=== PATIENT | female | born 1945 | race Caucasian/White ===

== ENCOUNTER 2022-09-20 09:46 | Outpatient (CLI) | payer MEDICARE, SELFPAY | END 2022-09-20 09:47 | disposition home or self-care (01) | LOC: NFLDUCREF 09-21 11:09 | PROVIDERS: PCP Family Medicine; Visit Provider Physician Assistant | DX: R30.0 Dysuria (principal); N39.0 Urinary tract infection, site not specified | CPT/HCPCS: 87086; 87186 ==

== ENCOUNTER 2023-08-12 17:40 | Outpatient (CLI) | payer MEDICARE, SELFPAY ==
--- NOTE | 2023-08-12 18:15 | CRLHL7_ITS ---
For Patients: As a result of the Century Cures Act, medical imaging exams and procedure reports are released immediately into your electronic medical record. You may view this report before your referring provider. If you have questions, please contact your health care provider. HISTORY: Right knee pain. TECHNIQUE: Routine knee protocol. FINDINGS: Medial compartment: Medial meniscus: The medial meniscus is intact without evidence for tearing. 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 Lateral compartment: Lateral meniscus: Horizontal tearing is noted of the body of the meniscus as noted on images 18-20 of series 6 with sparing of the anterior and posterior horns. 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 Patellofemoral compartment: Severe full-thickness grade 4 chondromalacia is noted of the lateral facet and lateral trochlear sulcus with grade 3 changes medially. Small osteophytes are noted. Ligaments: The anterior cruciate, posterior cruciate, medial collateral and lateral collateral ligaments are intact. Extensor mechanism: The quadriceps and patellar tendons are intact and unremarkable. Bones and soft tissues: No findings for transcortical or osteochondral fracture. There is a mild knee joint effusion present. No loose body is noted. Patchy edema is seen in the soft tissues about the knee joint. There is a 7 cm posteromedial Govea`s cyst present. IMPRESSION: Tearing of the body of the lateral meniscus. There is severe grade 3/4 chondromalacia throughout the knee joint. Dictated by Sammy Coy MD @ 08/15/2023 7:04:23 AM (Electronically Signed)
== END 2023-08-12 17:41 | disposition home or self-care (01) ==
PROVIDERS: PCP Family Medicine; Visit Provider Internal Medicine
DX: M25.561 Pain in right knee (principal); S83.281A Other tear of lateral meniscus, current injury, right knee, initial encounter; M94.261 Chondromalacia, right knee; S89.90XA Unspecified injury of unspecified lower leg, initial encounter
CPT/HCPCS: 73721

== ENCOUNTER 2023-08-31 07:06 | Day surgery (SDC) | payer MEDICARE, SELFPAY ==
[2023-08-31] VITALS (14 sets, daily range): BP systolic 82–123; BP diastolic 50–89; PULSE 63–137; RESP 16–24; TEMP 36.3–37.7; O2SAT 92–100; BMI 22.3
[2023-08-31] MEDS: LACTATED RINGERS 1000 ML 1,000 ML 100 ML IV (07:45)
[2023-08-31] MEDS: SODIUM CHLORIDE 0.9 % (FLUSH) 10 ML SYRINGE IVF (07:45)
--- NOTE | 2023-08-31 07:54 | SUR.PREOP ---
Anesthesia ordered EKG for irregular heart rate by monitor. Continued to monitor, Heart rate high 80's to 100. Anesthesia aware. Pushing IV fluids pre-op.
[2023-08-31] MEDS: CEFAZOLIN 2 GM INJ IVP (08:39)
[2023-08-31] MEDS: BUPIVACAINE 0.25% 30 ML INJECTION (09:15)
--- NOTE | 2023-08-31 09:17 | PM.ORPRC ---
Procedure Note Date of procedure: 08/31/23 Procedure: PREOPERATIVE DIAGNOSIS: Right knee lateral meniscus tear POSTOPERATIVE DIAGNOSIS: Right knee lateral meniscus tear NAME OF OPERATION: Right knee arthroscopic partial lateral meniscectomy SURGEON: Ethan Kilpatrick MD STOPBOARD ASSEMBLER: JESSEE Conner ANESTHESIA: Spinal ESTIMATED BLOOD LOSS: 0 mL COMPLICATIONS: None SPECIMENS: None DRAINS: None PREOPERATIVE ANTIBIOTICS: Ancef 2 gram INDICATIONS: The patient is a 78-year-old with a history of right knee posterior pain. MRI scan is consistent with a lateral meniscus tear. Despite appropriate nonoperative management, including activity modification, antiinflammatories, [id number]-[id number] pain medication, bracing, physical therapy, and injections they continue to have pain and disability. Operative intervention was offered. The risks, benefits and expected outcomes were discussed in detail. These included but were not limited to: Infection, bleeding, injury to blood vessel or nerve, venous thromboembolism. All questions were answered to their satisfaction. PROCEDURE: Spinal anesthesia was administered. The patient was placed supine on the operating room table. The right lower extremity was prepped and draped in the usual sterile fashion. The limb was exsanguinated with the Ronald bandage. The pneumatic tourniquet was inflated to 300 mmHg. A standard anterolateral portal was established. The arthroscope was introduced. The working portal was established anteromedially. Diagnostic arthroscopy was performed with findings as follows: The suprapatellar pouch is normal. Articular surface on the patella shows diffuse grade 1/2 change. Articular surface on the trochlea shows diffuse grade 2/3 change. The medial gutter is normal. The medial compartment shows a focal area of grade 3 change on the central, weight-bearing portion of the medial femoral condyle, normal articular cartilage on the medial tibial plateau. The medial meniscus is normal. The notch shows the ACL to be intact. The lateral compartment shows a focal area of grade 3 change on the lateral femoral condyle, grade 2/3 change on the lateral tibial plateau. The lateral meniscus has a degenerative tear of the midbody at the junction to the anterior horn primarily consisting of leading edge fraying and mid substance horizontal cleavage tearing. The lateral gutter is normal. The midbody of the lateral meniscus was debrided with the shaver through both portals, taken to a stable base. Unstable chondral flaps on the medial and lateral femoral condyle were debrided with the shaver through both portals as well. Arthroscopic instruments were removed, the portal sites were Steri-Stripped closed, the knee was infiltrated with 30 mL of 0.25% Marcaine without epinephrine. A dry dressing was applied, the tourniquet was released. Sponge and needle counts were correct x 2. The patient tolerated the procedure well. There were no apparent complications. They were carefully transferred to the hospital bed and taken to the postanesthesia care unit in satisfactory condition. PLAN: The patient will be discharged to home. They may weightbear as tolerates. Range of motion will be unrestricted. They will follow up in the office next week for a wound check.
--- NOTE | 2023-08-31 09:25 | W.ANESCHARGE ---
Anesthesia Charges Start Date/Time Anesthesia Start Date: 08/31/23 Anesthesia Start Time: 08:28 Stop Date/Time Anesthesia Stop Date: 08/31/23 Anesthesia Stop Time: 09:25
--- NOTE | 2023-08-31 09:42 | W.ANESCHARGE ---
Anesthesia Charges Start Date/Time Anesthesia Start Date: 08/31/23 Anesthesia Start Time: 08:28 Stop Date/Time Anesthesia Stop Date: 08/31/23 Anesthesia Stop Time: 09:25 Summary Extremes of Age - Over 70 or under 1: MDA
--- NOTE | 2023-08-31 09:59 | SUR.PHASEI ---
patient met discharge criteria per anesthesia
== END 2023-08-31 11:25 | disposition home or self-care (01) ==
PROVIDERS: PCP Family Medicine; Visit Provider Orthopaedic Surgery
PROC: (CPT 29870; principal; 2023-08-31 08:30)
DX: M23.241 Derangement of anterior horn of lateral meniscus due to old tear or injury, right knee (principal)
CPT/HCPCS: 29881; 01400; 99100; J0665; J0690; J1100; J2250; J2405; J2704; J3010; J7120

== ENCOUNTER 2024-02-17 13:19 | Outpatient (CLI) | payer MEDICARE, SELFPAY ==
--- NOTE | 2024-02-17 14:00 | XR_ITS ---
Patient: NEFTALI SOLANO Facility:?[facility] Patient ID:?[id number] Site Patient ID:?[id number]. Site :?[id number] Study:?DEXA-Bone Density -02/17/2024 2:07:08 PM Ordering Physician:IRENE Final Report: DXA BONE MINERAL DENSITY STUDY Reason for exam: Osteoporosis. Current height (inches): 65.0 Weight (lbs.): 135.0 Menopause age: 51 Ethnicity: White 1. Have you had a previous hip or vertebral fracture? No. 2. Have you had any fractures during your adult life which did not result from significant trauma (e.g., auto accident)? Yes. 3. Did either of your parents have a hip fracture? No. 4. Do you smoke? No. 5. Have you ever taken Glucocorticoids? No. 6. Do you have rheumatoid arthritis? No. 7. Do you have secondary osteoporosis? No. 8. Do you drink 3 or more alcoholic drinks per day? Yes. 9. Are you being treated for osteoporosis? No. 10. Have you ever taken any of the following medications: Actonel, Evista, Fosamax, Miacalcin, Reclast, Boniva, Forteo, HRT (i.e., estrogen/hormone therapy), Protelos, Prolia, Vitamin D, Calcium, other ? please specify. ANSWER: Yes; Fosamax, Reclast, vitamin D, HRT, calcium. 11. Do you have any of the following medical conditions: Anorexia or bulimia, asthma or emphysema, end stage renal disease, hyperparathyroidism, any seizure disorders, cancer, inflammatory bowel diseases, hysterectomy, other ? please specify. ANSWER: Yes; cancer. 12. What was your maximum height (inches)? 67. 13. Do you perform weightbearing exercise regularly? No. 14. Do you regularly consume dairy products? No. 15. Do you drink caffeinated beverages? Yes. 16. At what age did your period start? 12. 17. Are you premenopausal? No. 18. How many full-term pregnancies have you had? 2. 19. Have you ever missed your period for more than 6 months in a row (not including or menopause)? No. TECHNIQUE: Bone mineral density study was performed using the [facility]. FINDINGS: The results of the study expressed as bone mineral density (BMD) are as follows: Lumbar Spine L1 to L2: BMD: 0.886 g/cm2. T-score: -0.8. Z-score: 1.6. Neck Left: BMD: 0.422 g/cm2. T-score: -3.8. Z-score: -1.6. Right: BMD: 0.469 g/cm2. T-score: -3.4. Z-score: -1.1. Total Left: BMD: 0.566 g/cm2. T-score: -3.1. Z-score: -1.0. Right: BMD: 0.617 g/cm2. T-score: -2.7. Z-score: -0.6. Radius Left 33%: BMD: 0.446 g/cm2. T-score: -4.1. Z-score: -1.0. IMPRESSION: Osteoporosis. COMPARISON: Compared with scan of 03/08/2017, the bone mineral density has increased by 15.5% at the spine and increased by 2.2% at the hip. *Comparison exams done prior to 04/2020 were performed on different unit, [employer]. BILL PALUMBO M.D. Diagnostic Radiologist [email or web address] ALEX/wing D& Transcribed: 12:[address]/Dictated by: Bill Palumbo MD @ 02/18/2024 10:42:00 AM Signed by:?Bill Palumbo MD @02/18/2024 12:12:12 PM (Electronic Signature)
== END 2024-02-17 13:20 | disposition home or self-care (01) ==
PROVIDERS: PCP Family Medicine; Visit Provider Family Medicine
DX: M81.0 Age-related osteoporosis without current pathological fracture (principal)
CPT/HCPCS: 77080

== ENCOUNTER 2024-09-04 18:29 | Inpatient (IN) | payer MEDICARE, SELFPAY ==
[2024-09-04] VITALS (21 sets, daily range): BP systolic 103–156; BP diastolic 74–112; PULSE 69–133; RESP 16–18; TEMP 36.6–36.8; O2SAT 86–100; BMI 21.8; BMI 22.2
[2024-09-04 19:25] LABS: Lactate* 0.9 mmol/L (0.5-1.9)
[2024-09-04 19:27] LABS: Basophils Absolute Auto 0.03 K/uL (0.00-0.30); Basophils Percent Auto 0.5 % (0.0-3.0); Eosinophils Percent Auto 1.6 % (0.0-7.0); Hematocrit 41.6 % (33.0-51.0); Hemoglobin* 13.4 gm/dL (12.0-16.0); Immature Granulocytes Abs Auto 0.01 K/uL (0.00-0.30); Immature Granulocytes Pct Auto 0.2 %; Lymphocytes Absolute Auto 2.25 K/uL (0.90-2.90); Lymphocytes Percent Auto 35.2 % (20-44); Mean Corpuscular HGB Conc 32 gm/dL (32-36); Mean Corpuscular Hemoglobin 30 pg (26-34); Mean Corpuscular Volume 92 fL (80-100); Monocytes Percent Auto 8.4 % (0.0-11.0); Neutrophils Absolute Auto 3.47 K/uL (1.7-7.0); Neutrophils Percent Auto 54.1 % (42.0-72.0); Platelet Count* 185 K/uL (140-440); RDW Coefficient of Variation % 13.5 % (11.5-15.5); Red Blood Count 4.52 m/uL (4.00-5.20)
[2024-09-04] MEDS: 0.9 % SODIUM CHLORIDE 500 ML 500 ML IV (19:29)
--- OUTSIDE RECORDS SUMMARY | 2024-09-04 19:29 | XMS_ITS | Clinical Summary ---
Author Organization [place] Address [address] [place] [id number] Care Team Providers Care Catering Associate Name Role Phone Melissa Stokes MD Primary Care Provider + Allergies Active Allergy Reactions Criticality Noted Date Comments Cheese Flavor Headache 10/23/2014 Migraines Chocolate Unknown 12/02/2010 Monosodium Glutamate Unknown 12/02/2010 Medications calcium carbonate-vitam in D3 (CALCIUM 600 + D,3,) 600 mg(1,500mg) -400 unit per tablet [CALCIUM CARBONATE- TAMIN D3 (CALCIUM 600 + D,3,) 600 MG(1,500MG) -400 UNIT PER TABLET] Take 2 tablets by mouth daily. 10/23/2014 Active cholecalciferol , vitamin D3, (VITAMIN D3) 2,000 unit cap [CHOLECALCIF RUTH, VITAMIN D3, (VITAMIN D3) 2,000 UNIT CAP] Take 2 tablets by mouth daily. 10/23/2014 Active biotin 1 mg tablet [BIOTIN 1 MG TABLET] Take 1,000 mcg by mouth daily. 07/16/2015 Active Active Problems Problem Noted Date Diagnosed Date Iliotibial band syndrome of right side 4 Osteoarthritis Of The Knee Overview (08/08/2021): Created by Conversion Replacement Utility updated for latest IMO load Replacing diagnoses that were inactivated after the 08/08/2021 regulatory import. Itching (Pruritus) Overview (05/09/2021): Created by Conversion Replacement Utility updated for latest IMO load Osteoporosis Overview (05/09/2021): Created by Conversion Replacement Utility updated for latest IMO load Fatigue Overview (04/22/2021): Created by Conversion Seborrheic Keratosis Overview (04/22/2021): Created by Conversion Skin Disorder Overview (04/22/2021): Created by Conversion Rhinitis Overview (04/22/2021): Created by Conversion Insomnia Overview (04/22/2021): Created by Conversion Tinnitus Overview (05/09/2021): Created by Conversion Replacement Utility updated for latest IMO load Scoliosis Overview (08/08/2021): Created by Conversion Replacing diagnoses that were inactivated after the 08/08/2021 regulatory import. Joint Pain, Localized In The Hip Overview (04/22/2021): Created by Conversion Joint Pain, Localized In The Knee Overview (04/22/2021): Created by Conversion Lower Back Pain Overview (04/22/2021): Created by Conversion Resolved Problems Problem Noted Date Diagnosed Date Resolved Date Acute postoperative pain of right knee 11/09/2023 02/16/2024 Right leg weakness 11/09/2023 4 Immunizations Name Administration Dates Next Due Pneumo Conj 13-V (2010&after) 07/16/2015 Pneumococcal 23 valent 12/04/2009 Td,adult,historic,unspecified 1945 Zoster vaccine, live 12/04/2009 Family History Medical History Relation Comments Breast Cancer Mother Relation Status Comments Mother Social History Tobacco Use Types Packs/Day Years Used Date Smoking Tobacco: Never Alcohol Use Standard Drinks/Week Comments Not Asked 0 (1 standard drink = 0.6 oz pur e alcohol) Adolescent Education Answer Date Record ed Getting School Help Needed Not on file 07/31 Comments Unknown Sex and Gender Information Value Date Recorded Sex Assigned at Not on file Legal Sex Female 1:28 PM CDT Gender Identity Not on file Sexual Orientation Not on file Last Filed Vital Signs Vital Sign Reading Time Taken Comments Blood Pressure - - Pulse - - Temperature - - Respiratory Rate - - Oxygen Saturation - - Inhaled Oxygen Concentration - - Weight 64.3 kg (141 lb 12.8 oz) 07/16/2015 8:09 AM CDT Height 165.7 cm (5' 5.25) 07/16/2015 8:09 AM CD T Body Mass Index 23.42 07/16/2015 8:09 AM CDT Plan of Treatment Health Maintenance Due Date Last Done Comments ADVANCE CARE PLANNING 1945 ANNUAL REVIEW OF HM ORDERS 1945 DEXA 1945 GLUCOSE 1945 FALL RISK ASSESSMENT 2009 ZOSTER IMMUNIZATION (2 of 3) 01/29/2010 12/04/2009 DTAP/TDAP/TD IMMUNIZATION (1 - Tdap) 02/15/2014 02/14/2014, 02/07/2004, 11/08/2002, Additional history exists MEDICARE ANNUAL WELLNESS VISIT 07/16/2016 07/16/2015, 07/16/2015 RSV VACCINE (1 - 1-dose 75+ series) 2019 LIPID 07/16/2020 07/16/2015 PHQ-2 (once per calendar year) 2023 COVID-19 Vaccine ( season) 2024 09/12/2021, 02/11/2021, 01/21/2021 INFLUENZA VACCINE (#1) 2024 Pneumococcal Vaccine: 65+ Years Completed 07/16/2015, 12/04/2009 HPV IMMUNIZATION Aged Out No longer e ligible based on patient's age to complete this topic MENINGITIS IMMUNIZATION Aged Out No l onger eligible based on patient's age to complete this topic RSV MONOCLONAL ANTIBODY Aged Out No l onger eligible based on patient's age to complete this topic Procedures Procedure Name Priority Date/Time Associated Diagnosis Comments LIPID PROFILE Routine 07/16/2015 9:08 AM CDT from Last 3 Months or Most Recently Relevant to Health Maintenance Results * (ABNORMAL) Lipid Profile (07/16/2015 9:08 AM CDT) Cholesterol 292(H) <=199 mg/dL 07/16/2015 8:22 PM CDT Triglycerides 77 <=149 mg/dL 07/16/2015 8:22 PM CDT Direct Measure HDL 88 >=40 mg/dL 2014 8:22 PM CDT LDL Cholesterol Calculated 189(H) 0 - 129 mg/dL 07/16/2015 8:22 PM CDT Patient Fasting > 8hrs? Yes 07/16/2015 8:22 PM CDT Blood specimen (specimen) Venipuncture / Unknown 07/16/2015 9:08 AM CDT 07/16/2015 7:16 PM CDT Luz Maria Lamb DO LAB - BLOOD ORDERABLES Final R esult from Last 3 Months or Most Recently Relevant to Health Maintenance Insurance UC[employer] MEDICARE UCARE MEDICARE Care Teams Catering Associate Relationship Specialty Start Date End Date Melissa Stokes MD [facility] [address] [address] PCP - General Family Medicine 09/17/23
--- OUTSIDE RECORDS SUMMARY | 2024-09-04 19:29 | XMS_ITS | Encounter Summary ---
Author Organization [facility] Address [address] [place] [address] Care Team Providers Care Blocker Heated Metal Forms Name Role Phone Unavailable Primary Care Provider Unavailabl e Reason for Referral * Outpatient (Routine) - Closed Specialty Diagnoses / Procedures Referred By Peter darby Referred To Contact Diagnoses Screening Mammogram Breast Cancer Procedures BI Breast Screening Bilateral with Tomosynthesis Melissa Stokes M.D. [address] [place] [address] Phone: tel: [facility] Referral ID Status Reason Start Date Expiration Date Visits Re quested Visits Authorized [id number] Closed 05/04/2024 05/04/2025 1 1 Reason for Visit * Outpatient (Routine) - Closed Specialty Diagnoses / Procedures Referred By Peter darby Referred To Contact Diagnoses Screening Mammogram Breast Cancer Procedures BI Breast Screening Bilateral with Tomosynthesis Melissa Stokes M.D. [address] [place] [address] Phone: tel: fax: [facility] Region Referral ID Status Reason Start Date Expiration Date Visits Re quested Visits Authorized [id number] Closed 05/04/2024 05/04/2025 1 1 Encounter Details Date Type Department Care Team (Latest Contact Info) Description 06/19/2024 2:07 PM CDT - 06/19/2024 11:59 PM CDT Hospital Encounter Department of Radiology in [place], [place] [address] [place] [phone] Melissa Stokes M.D. [address] [place] [phone] Screening Mammogram Breast Cancer Discharge Disposition: Home or Self Care Social History Tobacco Use Types Packs/Day Years Used Date Smoking Tobacco: Unknown Nutrition Answer Date Recorded Nutrition: EVOO Fat Source 13 06/04 Nutrition: Servings of Fruits/Vegetables per Day Not on file 06/04/2020 Dental Answer Date Recorded Dental: Regular Dentist Unknown 01/10/20 21 Comments Unknown Sex and Gender Information Value Date Recorded Sex Assigned at Not on file Legal Sex Female 4:53 AM FORMULA CHECKER Gender Identity Not on file Sexual Orientation Not on file documented as of this encounter Plan of Treatment Not on file documented as of this encounter Procedures Procedure Name Priority Date/Time Associated Diagnosis Comments BI BREAST SCREENING BILATERAL WITH TOMOSYNTHESIS RAD - Routine (most inpatients and all outpatients) 06/19/2024 2:39 PM CDT Screening Mammogram Breast Cancer documented in this encounter Results * BI Breast Screening Bilateral with Tomosynthesis (06/19/2024 2:39 PM CDT) Anatomical Region Laterality Modality Breast, Breast Imaging RST L OS, Breast Imaging ARZ LOS, Breast Imaging FLA LOS Bilateral Mammography Impressions 06/20/2024 11:30 AM CDT Benign. RECOMMENDATION: ??Screening as Clinically Appropriate ASSESSMENT: ??BI-RADS: 2: Benign. Narrative 06/20/2024 11:30 AM CDT EXAM: ??BI BREAST SCREENING BILATERAL WITH TOMOSYNTHESIS Current study was evaluated with a Computer Aided Detection (CAD) system. INDICATION: ??Screening mammogram. COMPARISON: ??Prior exam(s) were available and reviewed for comparison. DENSITY: ??c. The breast(s) are heterogeneously dense, which may obscure small masses. FINDINGS: ??No findings of malignancy. ??No significant change since prior exam. Posttreatment changes in the right upper outer breast. Procedure Note Wilder, Jawaad, M.D. - 06/20/2024 EXAM: BI BREAST SCREENING BILATERAL WITH TOMOSYNTHESIS Current study was evaluated with a Computer Aided Detection (CAD) system. INDICATION: Screening mammogram. COMPARISON: Prior exam(s) were available and reviewed for comparison. DENSITY: c. The breast(s) are heterogeneously dense, which may obscuresmall masses. FINDINGS: No findings of malignancy. No significant change since priorexam. Posttreatment changes in the right upper outer breast. IMPRESSION: Benign. RECOMMENDATION: Screening as Clinically Appropriate ASSESSMENT: BI-RADS: 2: Benign. us Melissa Stokes M.D. IMG BI PROCEDURES Final R esult documented in this encounter Visit Diagnoses Diagnosis Screening Mammogram Breast Cancer documented in this encounter
--- OUTSIDE RECORDS SUMMARY | 2024-09-04 19:29 | XMS_ITS | Referral Summary ---
Author Organization [place] Address [address] [place] [id number] Care Team Providers Care Economics Professor Name Role Phone Melissa Stokes MD Primary [...] 12/04/2009 Td,adult,historic,unspecified 1944 Zoster vaccine, live 12/04/2009 Social History Tobacco Use Types Packs/Day Years [...] 07/16/2015 8:09 AM CDT Plan of Treatment Not on file Procedures Procedure Name Priority Date/Time Associated Diagnosis [...] Most Recently Relevant to Health Maintenance Insurance [facility] MEDICARE [facility] MEDICARE Care Teams Economics Professor Relationship Specialty Start Date End Date Melissa Stokes MD [facility] [address] [place] [address] PCP - General Family Medicine 09/17/23
--- OUTSIDE RECORDS SUMMARY | 2024-09-04 19:29 | XMS_ITS ---
Author Organization [facility] Address [address] [place] [address] Care Team Providers Care Facility Manager Name Role Phone Unavailable Unavailable Unavailable Surgery Details Not on file Complications Check Surgery Details section. Procedure Estimated Blood Loss Check Surgery Details section. Procedure Findings Check Surgery Details section. Procedure Specimens Taken Check Surgery Details section.
--- OUTSIDE RECORDS SUMMARY | 2024-09-04 19:29 | XMS_ITS | Clinical Summary ---
Author Organization [facility] Address [address] [place] [address] Care Team Providers Care Dry Cure Worker Name Role Phone Unavailable Primary Care Provider Unavailabl e Source Comments Patient records contain information from all sites at [facility]. For routine questions regarding patient records, call [phone] during business hours, M-F 8:00 AM - 5:00 PM Central Time. Record requests for emergency care only can be directed to [phone] at any time.[facility] Encounters Date Type Department Care Team Description 06/19/2024 2:07 PM CDT - 06/19/2024 11:59 PM CDT Hospital Encounter Department of Radiology in [address] [phone] Melissa Stokes M.D. Screening Mammogram Breast Cancer Discharge Disposition: Home or Self Care from Last 3 Months Social History Tobacco Use Types Packs/Day Years Used Date Smoking Tobacco: Unknown Nutrition Answer Date Recorded Nutrition: EVOO Fat Source 13 06/04 Nutrition: Servings of Fruits/Vegetables per Day Not on file 06/04/2020 Dental Answer Date Recorded Dental: Regular Dentist Unknown 01/10/20 21 Comments Unknown Sex and Gender Information Value Date Recorded Sex Assigned at Not on file Legal Sex Female 4:53 AM COFFEE GROWER Gender Identity Not on file Sexual Orientation Not on file Last Filed Vital Signs Vital Sign Reading Time Taken Comments Blood Pressure 129/84 05/10/2017 8:45 AM CDT Pulse 94 05/10/2017 8:45 AM CDT Temperature - - Respiratory Rate - - Oxygen Saturation - - Inhaled Oxygen Concentration - - Weight 63.3 kg (139 lb 8.8 oz) 05/10/2017 8:45 A M CDT Height 164.3 cm (5' 4.69) 05/10/2017 8:45 AM CD T Body Mass Index 23.45 05/10/2017 8:45 AM CDT Plan of Treatment Health Maintenance Due Date Last Done Comments Zoster Vaccines (2 of 3) 01/29/2010 12/04/2009 DTaP,Tdap,and Td Vaccines (1 - Tdap) 02/15/2014 02/14/2014, 02/07/2004 RSV vaccine - (32-3 6 weeks) or 60+ years (1 - 1-dose 75+ series) 2019 Depression Screening (Annual PHQ-2) 11/08/2023 Fall Risk Screen (Annual) 11/08/2023 COVID-19 Vaccine (4 - 2023-2 5 season) 2024 09/12/2021, 02/11/2021, 01/21/2021 Influenza Vaccine (#1) 2024 Pneumococcal vaccine (65+ years) Completed 07/16/20 15, 12/04/2009 Mammogram Discontinued 06/19/2024, 0805/2023, 06/05/2022, Additional history exists Procedures Procedure Name Priority Date/Time Associated Diagnosis Comments BI BREAST SCREENING BILATERAL WITH TOMOSYNTHESIS RAD - Routine (most inpatients and all outpatients) 06/19/2024 2:39 PM CDT Screening Mammogram Breast Cancer from Last 3 Months Results * BI Breast Screening Bilateral with [...] the right upper outer breast. Procedure Note Jose C Wilder M.D. - 06/20/2024 EXAM: BI BREAST SCREENING [...] as Clinically Appropriate ASSESSMENT: BI-RADS: 2: Benign. Melissa Stokes M.D. [facility] [place]EDURES Final R esult from Last 3 Months Insurance [facility]
--- OUTSIDE RECORDS SUMMARY | 2024-09-04 19:29 | XMS_ITS | Encounter Summary ---
Author Organization [place] Address [address] [place] [id number] Care Team Providers Care Certified Technician Specialist Name Role Phone Melissa Stokes MD Primary Care Provider + Encounter Details Date Type Department Care Team (Late st Contact Info) Description 07/16/2015 Records - [facility] CONVERSION Scan, Non-Provider Social History Tobacco Use Types Packs/Day Years Used Date Smoking Tobacco: Never Assessed Comments Unknown Sex and Gender Information Value Date Recorded Sex Assigned at Not on file Legal Sex Female 1:28 PM CDT Gender Identity Not on file Sexual Orientation Not on file documented as of this encounter Plan of Treatment Not on file documented as of this encounter Visit Diagnoses Not on filedocumented in this encounter Care Teams Certified Technician Specialist Relationship Specialty Start Date End Date Melissa Stokes MD [facility] [address] [place] [address] PCP - General Family Medicine 09/17/23 documented as of this encounter
--- OUTSIDE RECORDS SUMMARY | 2024-09-04 19:29 | XMS_ITS | Encounter Summary ---
Author Organization [facility] Address [address] [place] [id number] Care Team Providers Care Millwork Estimator Name Role Phone Melissa Stokes MD Primary Care Provider + Encounter Details Date Type Department Care Team (Late st Contact Info) Description 05/17/2017 Records - [facility] CONVERSION Scan, Non-Provider Social History Tobacco Use Types Packs/Day Years Used Date Smoking Tobacco: Never Alcohol Use Standard Drinks/Week Comments Not Asked 0 (1 standard drink = 0.6 oz pur e alcohol) Comments Unknown Sex and Gender Information Value Date Recorded Sex Assigned at Not on file Legal Sex Female 1:28 PM CDT Gender Identity Not on file Sexual Orientation Not on file documented as of this encounter Plan of Treatment Not on file documented as of this encounter Visit Diagnoses Not on filedocumented in this encounter Care Teams Millwork Estimator Relationship Specialty Start Date End Date Melissa Stokes MD [facility] & [address] [address] PCP - General Family Medicine 09/17/23 documented as of this encounter
--- OUTSIDE RECORDS SUMMARY | 2024-09-04 19:29 | XMS_ITS | Referral Summary ---
Author Organization [facility] Address [address] [place] [address] Care Team Providers Care Client Onboarding Analyst Name Role Phone Unavailable Primary Care Provider Unavailabl e Source Comments Patient records contain information from all sites at [facility]. For routine questions regarding patient records, call [phone] during business hours, M-F 8:00 AM - 5:00 PM Central Time. Record requests for emergency care only can be directed to [phone] at any time.[facility] Encounters Date Type Department Care Team Description 06/19/2024 2:07 PM CDT - 06/19/2024 11:59 PM CDT Hospital Encounter Department of Radiology in [address] [phone] Melissa Stokes M.D. 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 Melissa Stokes M.D. IMG BI PROCEDURES Final R esult from Last 3 Months Insurance [employer]
--- OUTSIDE RECORDS SUMMARY | 2024-09-04 19:29 | XMS_ITS | Encounter Summary ---
Author Organization [facility] Address [address] [place] [address] Care Team Providers Care Yard Rigger Name Role Phone Melissa Stokes MD Primary Care Provider + Encounter Details Date Type Department Care Team (Late st Contact Info) Description 06/30/2016 Records - [facility] HE CONVERSION Scan, Non-Provider [...] on filedocumented in this encounter Care Teams Yard Rigger Relationship Specialty Start Date End Date Melissa Stokes MD [facility] & [address] [address] PCP - General Family Medicine 09/17/23 documented as of this encounter
--- OUTSIDE RECORDS SUMMARY | 2024-09-04 19:29 | XMS_ITS | Clinical Summary ---
Author Organization [facility] Address [place], [place] [address] Care Team Providers Care 3Rd Mate Name Role Phone Luz Maria Lamb DO Primary Care Provider Unavail able Allergies Active Allergy Reactions Criticality Noted Date Comments Lactase 04/27/2007 Cheddar cheese Chocolate Flavor Headache 09/03/2011 Flavoring Agent Headache 09/03/2011 Artificial color/flavoring Monosodium Glutamate Headache 03/12/2006 Aspartame Headache 03/12/2006 Wine Flavor 04/27/2007 Red wine Medications Medication Sig Dispensed Refills Start Date End Date Status IBUPROFEN 200 MG TAB take 1 tablet (200 mg) by oral route every 6 hours as needed with food 0 06/26/2008 Active calcium citrate (CITRACAL) 200 mg (950 mg) tablet Take 1 tablet by mouth 2 times daily with meals. 0 09/23/2012 Active Biotin 5 mg tab Take by mouth. 0 09/26/2013 Activ e Fish Oil-Bamberg-3 Fatty Acids (OMEGA 3 FISH OIL) 684-1,200 mg capsule Take 1 capsule by mouth once daily. 0 09/26/2013 Active L.acidoph-B.long-B.henrik nt-B.lac (PROBIOTIC ACIDOPHILUS BEADS) 2 billion cell cap Take 1 tablet by mouth once daily. 0 07/18/2014 Active Cholecalciferol, Vitamin D3, (VITAMIN D-3) 2,000 unit tablet Take 1 tablet by mouth once daily. 0 09/28/2014 Active codeine-guaiFENesin (ROBITUSSIN AC) 10-100 mg/5 mL liquidIndications:URI (upper respiratory infection) Take 10 mL by mouth every 4 hours if needed for Cough. Max dose 60 mL per 24 hrs. 200 mL 0 01/28/2015 Active Active Problems Problem Noted Date Diagnosed Date Osteoporosis, unspecified 04/27/2006 Overview (04/27/2006): Pt. is treated at [facility] for this. Was on Fosamax without good results. Currently on Boniva. Variants of migraine, not el sewhere classified, without mention of intractable migraine without mention of status migrainosus 04/27/2006 Malignant neoplasm of breast (female), unspecifi ed site Immunizations Name Administration Dates Next Due Td (Age >=7 Years) 11/08/2002 Family History Medical History Relation Name Comments Cancer Father Kidney Hypertension Father Cancer-breast Mother age 59 Heart Disease Mother Relation Name Status Comments Father Maternal Grandfather Maternal Grandmother Mother Paternal Grandfather Paternal Grandmother Sister Alive Son 1 Alive Son 2 Alive Social History Tobacco Use Types Packs/Day Years Used Date Smoking Tobacco: Never Alcohol Use Standard Drinks/Week Comments Yes 39 (1 standard drink = 0.6 oz pu re alcohol) beer, social Sex and Gender Information Value Date Recorded Sex Assigned at Not on file Gender Identity Not on file Sexual Orientation Not on file Obstetrics History Para Term AB IAB SAB Ectopic Multiple Livin g Live Births 2 2 2 2 2 Date Outcome GA Total Labor Labor/2nd/3rd Weight Sex Type Anes PTL Adeola A1 A5 Name Clin 1970 Term 40w 0d 3.91 kg (8 lb 10 oz) M Vag Living 1973 Term 40w 0d 4.1 kg (9 lb 0.5 oz) M Vag Living Last Filed Vital Signs Vital Sign Reading Time Taken Comments Blood Pressure 124/86 01/28/2015 12:05 PM CDT Pulse 88 01/28/2015 12:05 PM CDT Temperature 36.7 ??C (98 ??F) 01/28/2015 12:05 PM CDT Respiratory Rate 18 11/09/2007 10:40 AM PROGRAM ENGAGEMENT DIRECTOR Oxygen Saturation 100% 01/28/2015 12:05 PM CDT Inhaled Oxygen Concentration - - Weight 66.7 kg (147 lb) 01/28/2015 12:05 PM CDT Height 167 cm (5' 5.75) 09/26/2013 10:23 AM PROGRAM ENGAGEMENT DIRECTOR Body Mass Index 23.91 09/26/2013 10:23 AM PROGRAM ENGAGEMENT DIRECTOR Plan of Treatment Health Maintenance Due Date Last Done Comments Tdap 1955 Depression screening for age 12+ 1956 BMI (ht and wt on same day) for age 18+ 1962 Zoster (shingles) series for age 50+ (1 of 2) 1994 Pneumococcal series for age 65+ (1 of 1 - PCV) 2009 Tetanus booster 11/08/2012 11/08/2002 RSV vaccine for adults or pr egnancy (1 - 1-dose 75+ series) 2019 COVID-19 vaccine series ( - 2023- season) 2024 Influenza for age 65+ 07/09/2024 DEXA/DXA scan for age 65+ Completed 2008 (Completed outside of [facility]) Care Teams 3Rd Mate Relationship Specialty Start Date End Date Luz Maria Lamb DO PCP - General 08/23/12
[2024-09-04 19:30] LABS: Slide Review Reflex No
--- NOTE | 2024-09-04 19:30 | ED_ITS ---
HPI - General Adult General Chief complaint: Arrhythmia/Palpitations <Mckenna Carranza MD - Last Filed: 09/06/24 16:17> Stated complaint: Elevated BP <Mckenna Carranza MD - Last Filed: 09/06/24 16:17> Time Seen by Provider: 09/04/24 18:34 <Mckenna Carranza MD - Last Filed: 09/06/24 16:17> Source: patient <Mckenna Carranza MD - Last Filed: 09/06/24 16:17> Mode of arrival: ambulatory <Mckenna Carranza MD - Last Filed: 09/06/24 16:17> Limitations: no limitations <Mckenna Carranza MD - Last Filed: 09/06/24 16:17> History of Present Illness HPI narrative: Rather healthy 79-year-old female, who takes no prescribed medications, presents to the emergency room today with elevated pulse and blood pressure. Patient states she was in her usual state health when she when out for a bike ride. She states when she goes on a bike ride she keeps a close eye on her pulse because she states she has had arrhythmia is in the past. Unclear of what these in arrhythmias were. She states that as she was bike riding, was not exerting herself significantly she noticed on her heart monitor that her pulse was in the 1 30s. She went home and rested and checked her blood pressure that was over 200 systolic she states. She denies feeling chest pain or shortness of breath. She states that she feels a funny feeling in her chest. She denies any recent illness, changes in her appetite, diarrhea or vomiting. No fevers or chills. She does not have a headache. <Mckenna Carranza MD - Last Filed: 09/06/24 16:17> Related Data Home medications: Home Medications ?Medication ?Instructions ?Recorded ?Confirmed Lactobacillus 1 cap PO DAILY 08/31/22 09/05/24 acidophil,plantar-Bifido no.7 25 billion cell capsule (up4 Probiotics Adult 50 Plus) cholecalciferol (vitamin D3) 50 2,000 - 4,000 unit PO DAILY 08/31/22 09/05/24 mcg (2,000 unit) capsule coenzyme Q10 100 mg capsule 100 mg PO DAILY 08/31/22 09/05/24 (CoQ-10) vit C 226 mg-vit E 90 mg-copper 1 cap PO DAILY 08/31/22 09/05/24 0.8 mg-zinc oxide-lutein 5 mg capsule (PreserVision Lutein) COLLAGEN PEPTIDES 1 ea PO BID 09/05/24 09/05/24 Previous Rx's ?Medication ?Instructions ?Recorded apixaban 5 mg tablet (Eliquis) 2.5 mg (1/2 x 5 mg) PO BID #60 tabs 09/05/24 metoprolol succinate 25 mg 25 mg PO DAILY #30 tabs 09/05/24 tablet,extended release 24 hr <Mckenna Carranza MD - Last Filed: 09/06/24 16:17> Allergies/adverse reactions: Allergies Allergy/AdvReac Type Severity Reaction Status Date / Time artificial colors and flavors Allergy Intermediate Migraine Uncoded 07/18/24 13:09 Cheddar cheese AdvReac Severe Headache Uncoded 07/18/24 13:08 MSG AdvReac Severe Headache Uncoded 07/18/24 13:08 Red wine AdvReac Severe Headache Uncoded 07/18/24 13:08 Chocolate AdvReac Mild Headache Uncoded 07/18/24 13:08 <Mckenna Carranza MD - Last Filed: 09/06/24 16:17> Review of Systems Status of ROS: Reports: 10 or more systems reviewed and unremarkable except as noted in History and below <Mckenna Carranza MD - Last Filed: 09/06/24 16:17> [facility] Medical History: Medical History (Updated 09/05/24 @ 12:48 by Francis Silva MD) Meniscal injury ?S83.8X9A - Sprain of other specified parts of unspecified knee, initial encounter (ICD-10) Knee injury ?S89.90XA - Unspecified injury of unspecified lower leg, initial encounter (ICD-10) Migraine ?G43.909 - Migraine, unspecified, not intractable, without status migrainosus (ICD-10) History of vaginal delivery Lumbar back pain ?M54.50 - Low back pain, unspecified (ICD-10) Scoliosis ?M41.9 - Scoliosis, unspecified (ICD-10) Varicose veins of both lower extremities ?I83.93 - Asymptomatic varicose veins of bilateral lower extremities (ICD-10) Palpitations ?R00.2 - Palpitations (ICD-10) Osteoarthritis of both knees ?M17.0 - Bilateral primary osteoarthritis of knee (ICD-10) Intermittent lightheadedness ?R42 - Dizziness and giddiness (ICD-10) Influenza vaccination declined by patient ?Z28.21 - Immunization not carried out because of patient refusal (ICD-10) Hypothyroidism ?E03.9 - Hypothyroidism, unspecified (ICD-10) Hyperlipemia ?E78.5 - Hyperlipidemia, unspecified (ICD-10) Urge incontinence ?N39.41 - Urge incontinence (ICD-10) Osteoporosis ?M81.0 - Age-related osteoporosis without current pathological fracture (ICD- 10) Malignant neoplasm of breast (2002) ?C50.919 - Malignant neoplasm of unspecified site of unspecified female breast (ICD-10) 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) ?C44.321 - Squamous cell carcinoma of skin of nose (ICD-10) Normal colonoscopy (2013) History of deep venous thrombosis (2003) ?Z86.718 - Personal history of other venous thrombosis and embolism (ICD-10) Squamous cell carcinoma of skin of nose (2015) ?C44.321 - Squamous cell carcinoma of skin of nose (ICD-10) Breast cancer ?C50.919 - Malignant neoplasm of unspecified site of unspecified female breast (ICD-10) <Mckenna Carranza MD - Last Filed: 09/06/24 16:17> Surgical History: Surgical History (Updated 09/04/24 @ 23:20 by Deb Torres MD) S/P arthroscopic partial lateral meniscectomy of right knee (08/31/23) ?Z98.890 - Other specified postprocedural states (ICD-10) ?Z87.828 - Personal history of other (healed) physical injury and trauma (ICD-10) Status post breast lumpectomy (2002) ?Z98.890 - Other specified postprocedural states (ICD-10) Status post hysteroscopic polypectomy (05/2005) ?Z98.890 - Other specified postprocedural states (ICD-10) History of knee surgery (2008) ?Z98.890 - Other specified postprocedural states (ICD-10) History of foot surgery ?Z98.890 - Other specified postprocedural states (ICD-10) History of tonsillectomy ?Z90.89 - Acquired absence of other organs (ICD-10) <Mckenna Carranza MD - Last Filed: 09/06/24 16:17> Family History: Family History Mother Depression Breast cancer, Onset Age: 59 Myocardial infarction, Onset Age: 65 Cardiovascular disease Father Renal cancer Skin cancer Paternal Grandfather Heart disease <Mckenna Carranza MD - Last Filed: 09/06/24 16:17> Social History: Social History Narrative: -Jose. Retired from . 2 sons. Lives in [place]. exercise biking 4/ week , 16 miles Nonsmoker (quit 1970. 6 pack years). alcohol 1/ day DNI What is your current living situation?: I presently have a place to live Problems where you live: no known problems Problems where you live details: N/A In the past 12 months, utilities in danger of being shut off: no In past 12 months, lack of transportation kept you from medical appts, meetings, work, or getting things needed for daily living: no In the past 12 mos, have been you worried that your food would run out before you had money to buy more?: never true In the past 12 mos, the food you bought just didn't last and you didn't have money to buy more?: never true Highest level of school completed/degree received: some college, no degree Smoking Status: Former smoker What tobacco products do you use: cigarettes Smoking quit date/years: >15 years ago Do you use any of these nicotine containing products: None Second hand tobacco smoke exposure: No How often do you have a drink containing alcohol: 4 or more times a week Alcohol type: beer and wine Alcohol type details: 1 beer or glass of wine daily How many standard drinks containing alcohol do you have on a typical day: 1 or 2 How often do you have six or more drinks on one occasion: Never AUDIT-C Alcohol total score: 4 Non-prescribed substance use: denies use Caffeine: Yes How often does anyone, including family, friends and others, physically hurt you : never How often does anyone, including family, friends and others, insult or talk down to you: never How often does anyone, including family, friends and others, threaten you with harm: never How often does anyone, including family, friends and others, scream or curse at you: never Little interest or pleasure in doing things: not at all Feeling down, depressed, or hopeless: not at all Are you using contraception or practicing any form of control: No service: No <Mckenna Carranza MD - Last Filed: 09/06/24 16:17> Exam Narrative: Exam Narrative: Well-nourished well-developed patient in no acute distress. Alert and oriented. Answers questions appropriately. Mood and affect are appropriate. Thoughts are goal oriented and rational. No tangential or magical thinking noted. Patient speaks in full sentences without needing to catch her breath. HEENT: Normocephalic atraumatic. Pupils are equally round reactive to light. Extraocular muscles are intact. Conjunctivae are moist without any icterus noted. Moist mucous membranes. Neck is soft. Cardiovascular: Irregularly irregular. Lungs: Clear to auscultation bilaterally no wheezes rhonchi or rales are appreciated. Patient takes deep breaths without any discomfort. Abdomen: Soft and nontender nondistended with normal bowel sounds. Extremities: Bilateral lower extremities are without edema. Skin: Well perfused without any obvious rashes. <Mckenna Carranza MD - Last Filed: 09/06/24 16:17> Const: Vital Signs, click to edit/add: Vital Signs - 24 hr 09/04/24 18:41 09/04/24 19:20 09/04/24 19:21 Temperature 97.8 F Pulse Rate 87 88 Pulse Rate [Pulse Oximeter] 133 H Respiratory Rate 18 Blood Pressure 142/79 H Blood Pressure [Ri ght Upper Arm] 156/94 H Pulse Oximetry 97 98 99 09/04/24 19:30 09/04/24 19:45 09/04/24 19:56 Temperature Pulse Rate 100 80 102 H Pulse Rate [Pulse Oximeter] Respiratory Rate Blood Pressure 150/112 H Blood Pressure [Ri ght Upper Arm] Pulse Oximetry 97 92 100 09/04/24 19:57 09/04/24 20:00 09/04/24 20:08 Temperature Pulse Rate 98 92 85 Pulse Rate [Pulse Oximeter] Respiratory Rate 16 Blood Pressure 142/100 H 128/84 Blood Pressure [Ri ght Upper Arm] Pulse Oximetry 98 98 94 09/04/24 20:15 09/04/24 20:26 09/04/24 20:27 Temperature Pulse Rate 70 74 71 Pulse Rate [Pulse Oximeter] Respiratory Rate 16 Blood Pressure 103/76 Blood Pressure [Ri ght Upper Arm] Pulse Oximetry 93 86 L 99 09/04/24 20:30 09/04/24 20:45 Temperature Pulse Rate 74 70 Pulse Rate [Pulse Oximeter] Respiratory Rate Blood Pressure Blood Pressure [Ri ght Upper Arm] Pulse Oximetry 94 96 <Mckenna Carranza MD - Last Filed: 09/06/24 16:17> Vital Signs, click to edit/add: Vital Signs - 24 hr 09/04/24 18:41 09/04/24 19:20 09/04/24 19:21 Temperature 97.8 F Pulse Rate 87 88 Pulse Rate [Pulse Oximeter] 133 H Respiratory Rate 18 Blood Pressure 142/79 H Blood Pressure [Ri ght Upper Arm] 156/94 H Pulse Oximetry 97 98 99 09/04/24 19:30 09/04/24 19:45 09/04/24 19:56 Temperature Pulse Rate 100 80 102 H Pulse Rate [Pulse Oximeter] Respiratory Rate Blood Pressure 150/112 H Blood Pressure [Ri ght Upper Arm] Pulse Oximetry 97 92 100 09/04/24 19:57 09/04/24 20:00 09/04/24 20:08 Temperature Pulse Rate 98 92 85 Pulse Rate [Pulse Oximeter] Respiratory Rate 16 Blood Pressure 142/100 H 128/84 Blood Pressure [Ri ght Upper Arm] Pulse Oximetry 98 98 94 09/04/24 20:15 09/04/24 20:26 09/04/24 20:27 Temperature Pulse Rate 70 74 71 Pulse Rate [Pulse Oximeter] Respiratory Rate 16 Blood Pressure 103/76 Blood Pressure [Ri ght Upper Arm] Pulse Oximetry 93 86 L 99 09/04/24 20:30 09/04/24 20:45 Temperature Pulse Rate 74 70 Pulse Rate [Pulse Oximeter] Respiratory Rate Blood Pressure Blood Pressure [Ri ght Upper Arm] Pulse Oximetry 94 96 <Mckenna Ventura MD - Last Filed: 09/04/24 21:11> Course Course ED Course: EKG, read by me, shows a what appears to be AFib/atrial flutter with a pulse of 113. She is otherwise hemodynamically stable. Her blood pressure is 156/94. IV is established and patient is started on IV fluids. Diltiazem was ordered. Labs are drawn. Normal CBC. Normal lactate. Remainder of labs pending at this time. Pulse did come down to the high 90s after diltiazem, repeat EKG showed that the patient was still in AFib/flutter. Patient will be started on a diltiazem drip at this time. Care transferred to oncoming physician. <Mckenna Carranza MD - Last Filed: 09/06/24 16:17> Reevaluation(s) Time of Reevaluation #1: 21:09 <Mckenna Ventura MD - Last Filed: 09/04/24 21:11> Reevaluation #1: Have discussed with patient plan for hospitalization. She still is on the diltiazem drip. Will need to be converted toe oral rate control medicines. Also did review with her that this rhythm is concerning for blood clots that can cause stroke. She states she is aware of that. She and the hospitalist will discuss anticoagulation. We also reviewed that her potassium was just mildly low, will give her an oral dose for replacement. She wanted to know if dehydration set this off. Did review with her from what I see on her labs, I do not suspect dehydration. <Mckenna Ventura MD - Last Filed: 09/04/24 21 :11> Consultations Consultation #1: Have spoken with hospitalist Dr. Torres. She accepts patient. She will d iscuss anticoagulation with her as this has not been addressed down here. Did review the mildly low potassium, will order oral replacement. TSH was mildly abnormal, hospitalist plans on having patient recheck that in clinic. <Mckenna Ventura MD - Last Filed: 09/04/24 21:11> Time: 21:03 <Mckenna Ventura MD - Last Filed: 09/04/24 21:11> Vital Signs Vital signs: Initial Vital Signs Temperature 97.8 F 09/04/24 18:41 Temperature Source Temporal Artery Scan 09/04/24 18:41 Pulse Rate 133 H 09/04/24 18:41 Respiratory Rate 18 09/04/24 18:41 Blood Pressure 156/94 H 09/04/24 18:41 Blood Pressure Mean 114 H 09/04/24 18:41 Pulse Oximetry 97 09/04/24 18:41 Vital Signs Temperature 97.8 F 09/04/24 18:41 Pulse Rate 133 H 09/04/24 18:41 Respiratory Rate 18 09/04/24 18:41 Blood Pressure 156/94 H 09/04/24 18:41 Pulse Oximetry 97 09/04/24 18:41 Temperature 97.9 F 09/05/24 10:56 Pulse Rate 65 09/05/24 10:56 Respiratory Rate 18 09/05/24 10:56 Blood Pressure 108/66 09/05/24 10:56 Pulse Oximetry 98 09/05/24 10:56 Oxygen Delivery Method Room Air 09/05/24 10:56 <Mckenna Carranza MD - Last Filed: 09/06/24 16:17> Initial Vital Signs Temperature 97.8 F 09/04/24 18:41 Temperature Source Temporal Artery Scan 09/04/24 18:41 Pulse Rate 133 H 09/04/24 18:41 Respiratory Rate 18 09/04/24 18:41 Blood Pressure 156/94 H 09/04/24 18:41 Blood Pressure Mean 114 H 09/04/24 18:41 Pulse Oximetry 97 09/04/24 18:41 Vital Signs Temperature 97.8 F 09/04/24 18:41 Pulse Rate 133 H 09/04/24 18:41 Respiratory Rate 18 09/04/24 18:41 Blood Pressure 156/94 H 09/04/24 18:41 Pulse Oximetry 97 09/04/24 18:41 Temperature 97.9 F 09/05/24 10:56 Pulse Rate 65 09/05/24 10:56 Respiratory Rate 18 09/05/24 10:56 Blood Pressure 108/66 09/05/24 10:56 Pulse Oximetry 98 09/05/24 10:56 Oxygen Delivery Method Room Air 09/05/24 10:56 <Mckenna Ventura MD - Last Filed: 09/04/24 21:11> Medications Administered Medications: Discontinued Medications Generic Name Dose Route Start Last Admin Trade Name Freq PRN Reason Stop Dose Admin Apixaban 2.5 mg 09/04/24 22:45 09/05/24 09:17 Apixaban 5 Mg Tablet PO 2.5 mg BID MELISSA Administration Diltiazem HCl 20 mg 09/04/24 19:18 09/04/24 20:00 Diltiazem 5 Mg/Ml Inj IVP 09/04/24 19:19 20 mg ONCE ONE Administration Sodium Chloride 500 mls @ 500 mls/hr 09/04/24 18:50 09/04/24 20:31 0.9 % Sodium Chloride 500 Ml IV 09/04/24 19:49 Infused .Q1H ONE Infusion Diltiazem HCl 125 mg/ Sodium 125 mls @ 10 mls/hr 09/04/24 19:55 09/05/24 01:15 Chloride IVPB 0 mls/hr .TITRATE MELISSA Infusion Protocol Metoprolol Succinate 25 mg 09/05/24 10:40 09/05/24 10:54 Metoprolol Succinate (Xl) 25 Mg Tab PO 25 mg DAILY MELISSA Administration Metoprolol Tartrate 25 mg 09/04/24 23:00 09/05/24 06:43 Metoprolol Tartrate 25 Mg Tablet PO Not Given Q4H MELISSA Potassium Bicarbonate 25 meq 09/04/24 21:09 09/04/24 21:20 Potassium Bicarb 25 Meq Effervescent Tab PO 09/04/24 21:10 25 meq ONCE ONE Administration Sodium Chloride 5 ml 09/05/24 09:00 09/05/24 09:17 Sodium Chloride 0.9 % (Flush) 10 Ml Syringe IVF 5 ml BID MELISSA Administration <Mckenna Carranza MD - Last Filed: 09/06/24 16:17> Discontinued Medications Generic Name Dose Route Start Last Admin Trade Name Freq PRN Reason Stop Dose Admin Apixaban 2.5 mg 09/04/24 22:45 09/05/24 09:17 Apixaban 5 Mg Tablet PO 2.5 mg BID MELISSA Administration Diltiazem HCl 20 mg 09/04/24 19:18 09/04/24 20:00 Diltiazem 5 Mg/Ml Inj IVP 09/04/24 19:19 20 mg ONCE ONE Administration Sodium Chloride 500 mls @ 500 mls/hr 09/04/24 18:50 09/04/24 20:31 0.9 % Sodium Chloride 500 Ml IV 09/04/24 19:49 Infused .Q1H ONE Infusion Diltiazem HCl 125 mg/ Sodium 125 mls @ 10 mls/hr 09/04/24 19:55 09/05/24 01:15 Chloride IVPB 0 mls/hr .TITRATE MELISSA Infusion Protocol Metoprolol Succinate 25 mg 09/05/24 10:40 09/05/24 10:54 Metoprolol Succinate (Xl) 25 Mg Tab PO 25 mg DAILY MELISSA Administration Metoprolol Tartrate 25 mg 09/04/24 23:00 09/05/24 06:43 Metoprolol Tartrate 25 Mg Tablet PO Not Given Q4H MELISSA Potassium Bicarbonate 25 meq 09/04/24 21:09 09/04/24 21:20 Potassium Bicarb 25 Meq Effervescent Tab PO 09/04/24 21:10 25 meq ONCE ONE Administration Sodium Chloride 5 ml 09/05/24 09:00 09/05/24 09:17 Sodium Chloride 0.9 % (Flush) 10 Ml Syringe IVF 5 ml BID MELISSA Administration <Mckenna Ventura MD - Last Filed: 09/04/24 21:11> Medical Decision Making Lab Data Labs: Lab Results 09/04/24 Range/Units 19:15 WBC 6.40 (4.50-11.00) K/uL RBC 4.52 (4.00-5.20) m/uL Hgb 13.4 (12.0-16.0) gm/dL Hct 41.6 (33.0-51.0) % MCV 92 (80-100) fL MCH 30 (26-34) pg MCHC 32 (32-36) gm/dL RDW Coeff of Pamela 13.5 (11.5-15.5) % Plt Count 185 (140-440) K/uL Neut % (Auto) 54.1 (42.0-72.0) % Lymph % (Auto) 35.2 (20-44) % [place] % (Auto) 8.4 (0.0-11.0) % Eos % (Auto) 1.6 (0.0-7.0) % Baso % (Auto) 0.5 (0.0-3.0) % Neut # (Auto) 3.47 (1.7-7.0) K/uL Lymph # (Auto) 2.25 (0.90-2.90) K/uL [place] # (Auto) 0.50 (0.00-0.90) K/UL Eos # (Auto) 0.10 (0.00-0.50) K/uL Baso # (Auto) 0.03 (0.00-0.30) K/uL Abs Immat Gran (auto) 0.01 (0.00-0.30) K/uL Imm/Tot Granulo (auto) 0.2 % INR 0.92 (0.91-1.10) Sodium 140 (135-149) mmol/L Potassium 3.5 L (3.6-5.1) mmol/L Chloride 106 (96-114) mmol/L Carbon Dioxide 26 (20-32) mmol/L Anion Gap 8 (7-15) mEq/L BUN 32 H (7-30) mg/dL Creatinine 0.7 (0.5-1.5) mg/dL Estimated Creat Clear 40.38 Estimated GFR 87 ml/min Glucose 116 H (60-115) mg/dL Lactate 0.9 (0.5-1.9) mmol/L Calcium 9.8 (8.4-10.6) mg/dL Magnesium 2.3 (1.5-2.6) mg/dL Total Bilirubin 0.3 (0.1-1.5) mg/dL Direct Bilirubin 0.1 (0.0-0.5) mg/dL AST 27 (12-35) U/L ALT 18 (4-35) U/L Alkaline Phosphatase 56 (40-150) U/L Troponin I < 0.01 L (0.01-0.04) ng/mL NT-Pro-B Natriuret Pep 198 pg/mL Total Protein 6.8 (6.0-8.3) g/dL Albumin 4.1 (3.3-5.0) g/dL TSH 4.480 H (0.270-4.20) uIU/mL Free T4 1.14 (0.70-1.85) ng/dL <Mckenna Carranza MD - Last Filed: 09/06/24 16:17> Lab Results 09/04/24 Range/Units 19:15 WBC 6.40 (4.50-11.00) K/uL RBC 4.52 (4.00-5.20) m/uL Hgb 13.4 (12.0-16.0) gm/dL Hct 41.6 (33.0-51.0) % MCV 92 (80-100) fL MCH 30 (26-34) pg MCHC 32 (32-36) gm/dL RDW Coeff of Pamela 13.5 (11.5-15.5) % Plt Count 185 (140-440) K/uL Neut % (Auto) 54.1 (42.0-72.0) % Lymph % (Auto) 35.2 (20-44) % [place] % (Auto) 8.4 (0.0-11.0) % Eos % (Auto) 1.6 (0.0-7.0) % Baso % (Auto) 0.5 (0.0-3.0) % Neut # (Auto) 3.47 (1.7-7.0) K/uL Lymph # (Auto) 2.25 (0.90-2.90) K/uL [place] # (Auto) 0.50 (0.00-0.90) K/UL Eos # (Auto) 0.10 (0.00-0.50) K/uL Baso # (Auto) 0.03 (0.00-0.30) K/uL Abs Immat Gran (auto) 0.01 (0.00-0.30) K/uL Imm/Tot Granulo (auto) 0.2 % INR 0.92 (0.91-1.10) Sodium 140 (135-149) mmol/L Potassium 3.5 L (3.6-5.1) mmol/L Chloride 106 (96-114) mmol/L Carbon Dioxide 26 (20-32) mmol/L Anion Gap 8 (7-15) mEq/L BUN 32 H (7-30) mg/dL Creatinine 0.7 (0.5-1.5) mg/dL Estimated Creat Clear 40.38 Estimated GFR 87 ml/min Glucose 116 H (60-115) mg/dL Lactate 0.9 (0.5-1.9) mmol/L Calcium 9.8 (8.4-10.6) mg/dL Magnesium 2.3 (1.5-2.6) mg/dL Total Bilirubin 0.3 (0.1-1.5) mg/dL Direct Bilirubin 0.1 (0.0-0.5) mg/dL AST 27 (12-35) U/L ALT 18 (4-35) U/L Alkaline Phosphatase 56 (40-150) U/L Troponin I < 0.01 L (0.01-0.04) ng/mL NT-Pro-B Natriuret Pep 198 pg/mL Total Protein 6.8 (6.0-8.3) g/dL Albumin 4.1 (3.3-5.0) g/dL TSH 4.480 H (0.270-4.20) uIU/mL Free T4 1.14 (0.70-1.85) ng/dL <Mckenna Ventura MD - Last Filed: 09/04/24 21:11> Discharge Plan Discharge Clinical Impression: Atrial fibrillation and flutter <Mckenna Carranza MD - Last Filed: 09/06/24 16:17> Patient Disposition: Admitted As Observation <Mckenna Carranza MD - Last Filed: 09/06/24 16:17> Activity Level: Activity as Tolerated <Mckenna Carranza MD - Last Filed: 09/06/24 16:17> Activity as Tolerated <Mckenna Ventura MD - Last Filed: 09/04/24 21:11>
[2024-09-04 19:44] LABS: Albumin* 4.1 g/dL (3.3-5.0); Chloride* 106 mmol/L (96-114); Sodium* 140 mmol/L (135-149)
[2024-09-04 19:45] LABS: Potassium* 3.5 mmol/L (3.6-5.1)
[2024-09-04 19:46] LABS: Creatinine* 0.7 mg/dL (0.5-1.5); Est. Creatinine Clearance* 40.38; Estimated Glomerular Filt Rate 87 ml/min
[2024-09-04 19:47] LABS: Alanine Aminotransferase* 18 U/L (4-35); Alkaline Phosphatase* 56 U/L (40-150); Anion Gap 8 mEq/L (7-15); Aspartate Amino Transferase* 27 U/L (12-35); Bilirubin Direct* 0.1 mg/dL (0.0-0.5); Bilirubin Total* 0.3 mg/dL (0.1-1.5); Blood Urea Nitrogen* 32 mg/dL (7-30); Calcium* 9.8 mg/dL (8.4-10.6); Carbon Dioxide* 26 mmol/L (20-32); Glucose* 116 mg/dL (60-115); Magnesium* 2.3 mg/dL (1.5-2.6); Total Protein* 6.8 g/dL (6.0-8.3)
[2024-09-04] MEDS: dilTIAZem 5 MG/ML inj 20 MG IVP (20:00)
[2024-09-04 20:14] LABS: NT Pro B Type NatriureticPept* 198 pg/mL; Troponin I* < 0.01 ng/mL (0.01-0.04)
[2024-09-04 20:25] LABS: INR 0.92 (0.91-1.10); Prothrombin Time 12.9 Seconds
--- NOTE | 2024-09-04 20:28 | PC.NURSE ---
wrong pt vitals entered
[2024-09-04] MEDS: dilTIAZem HCL 125 MG in 0.9 % SODIUM CHLORIDE 100 ml 100 ML 10 MG IVPB (20:35)
[2024-09-04] MEDS: POTASSIUM BICARB 25 MEQ EFFERVESCENT TAB PO (21:20)
--- NOTE | 2024-09-04 22:39 | PM.IMHP1 ---
Hospitalist- H&P: HPI History of Present Illness Date Seen: 09/04/24 Chief complaint: Elevated BP Narrative: Jose De Jesus Burch is a 79 year old female with a h/o breast cancer, hypothyroidism, and hyperlipidemia who does not take any prescription medications who was out biking this afternoon when she noticed her HR jump all around from 120-180s on her sport watch. She felt fine. Denies CP or SOB. She went home and laid down, but her HR continued to be elevated and irregular. She took her BP which measured 220/150, so she came to the ER immediately. She was lightheaded at the time she came in. 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 She also says she had an irregular HR a year ago when she came in for a meniscal tear repair, although I do not see this in the documentation of the preop and operative notes. In the ER she got started on a diltiazem drip for afib/flutter with RVR. She says she feels better. Review of Systems Status of ROS: Reports: 10 or more systems reviewed and unremarkable except as noted in History and below [facility] Medical History (Updated 09/05/24 @ 00:00 by Deb Torres MD) Meniscal injury ?S83.8X9A - Sprain of other specified parts of unspecified knee, initial encounter (ICD-10) Knee injury ?S89.90XA - Unspecified injury of unspecified lower leg, initial encounter (ICD-10) Migraine ?G43.909 - Migraine, unspecified, not intractable, without status migrainosus (ICD-10) History of vaginal delivery Lumbar back pain ?M54.50 - Low back pain, unspecified (ICD-10) Scoliosis ?M41.9 - Scoliosis, unspecified (ICD-10) Varicose veins of both lower extremities ?I83.93 - Asymptomatic varicose veins of bilateral lower extremities (ICD-10) Palpitations ?R00.2 - Palpitations (ICD-10) Osteoarthritis of both knees ?M17.0 - Bilateral primary osteoarthritis of knee (ICD-10) Intermittent lightheadedness ?R42 - Dizziness and giddiness (ICD-10) Influenza vaccination declined by patient ?Z28.21 - Immunization not carried out because of patient refusal (ICD-10) Hypothyroidism ?E03.9 - Hypothyroidism, unspecified (ICD-10) Hyperlipemia ?E78.5 - Hyperlipidemia, unspecified (ICD-10) Urge incontinence ?N39.41 - Urge incontinence (ICD-10) Osteoporosis ?M81.0 - Age-related osteoporosis without current pathological fracture (ICD-10) Malignant neoplasm of breast (2002) ?C50.919 - Malignant neoplasm of unspecified site of unspecified female breast (ICD-10) 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) ?C44.321 - Squamous cell carcinoma of skin of nose (ICD-10) Normal colonoscopy (2013) History of deep venous thrombosis (2003) ?Z86.718 - Personal history of other venous thrombosis and embolism (ICD-10) Squamous cell carcinoma of skin of nose (2015) ?C44.321 - Squamous cell carcinoma of skin of nose (ICD-10) Breast cancer ?C50.919 - Malignant neoplasm of unspecified site of unspecified female breast (ICD-10) Surgical History (Updated 09/04/24 @ 23:20 by Deb Torres MD) S/P arthroscopic partial lateral meniscectomy of right knee (08/31/23) ?Z98.890 - Other specified postprocedural states (ICD-10) ?Z87.828 - Personal history of other (healed) physical injury and trauma (ICD-10) Status post breast lumpectomy (2002) ?Z98.890 - Other specified postprocedural states (ICD-10) Status post hysteroscopic polypectomy (05/2005) ?Z98.890 - Other specified postprocedural states (ICD-10) History of knee surgery (2008) ?Z98.890 - Other specified postprocedural states (ICD-10) History of foot surgery ?Z98.890 - Other specified postprocedural states (ICD-10) History of tonsillectomy ?Z90.89 - Acquired absence of other organs (ICD-10) Family History Mother Depression Breast cancer, Onset Age: 59 Myocardial infarction, Onset Age: 65 Cardiovascular disease Father Renal cancer Skin cancer Paternal Grandfather Heart disease Social History Narrative: -Jose. Retired from [employer]. 2 sons. Lives in [place]. exercise biking 4/ week , 16 miles Nonsmoker (quit 1970. 6 pack years). alcohol 1/ day DNI What is your current living situation?: I presently have a place to live Problems where you live: no known problems Problems where you live details: N/A In the past 12 months, utilities in danger of being shut off: no In past 12 months, lack of transportation kept you from medical appts, meetings, work, or getting things needed for daily living: no In the past 12 mos, have been you worried that your food would run out before you had money to buy more?: never true In the past 12 mos, the food you bought just didn't last and you didn't have money to buy more?: never true Highest level of school completed/degree received: some college, no degree Smoking Status: Former smoker What tobacco products do you use: cigarettes Smoking quit date/years: >15 years ago Do you use any of these nicotine containing products: None Second hand tobacco smoke exposure: No How often do you have a drink containing alcohol: 4 or more times a week Alcohol type: beer and wine Alcohol type details: 1 beer or glass of wine daily How many standard drinks containing alcohol do you have on a typical day: 1 or 2 How often do you have six or more drinks on one occasion: Never AUDIT-C Alcohol total score: 4 Non-prescribed substance use: denies use Caffeine: Yes How often does anyone, including family, friends and others, physically hurt you: never How often does anyone, including family, friends and others, insult or talk down to you: never How often does anyone, including family, friends and others, threaten you with harm: never How often does anyone, including family, friends and others, scream or curse at you: never Little interest or pleasure in doing things: not at all Feeling down, depressed, or hopeless: not at all Are you using contraception or practicing any form of control: No service: No Meds Home Medications and Allergies Home Medications ?Medication ?Instructions ?Recorded ?Confirmed ?Type Lactobacillus cap PO 08/31/22 07/18/24 History acidophil,plantar-Bifido no.7 25 billion cell capsule (up4 Probiotics Adult 50 Plus) cholecalciferol (vitamin D3) 50 2,000 - 4,000 unit PO QDAY 08/31/22 09/04/24 History mcg (2,000 unit) capsule coenzyme Q10 100 mg capsule 100 mg PO QDAY 08/31/22 09/04/24 History (CoQ-10) vit C 226 mg-vit E 90 mg-copper cap PO 08/31/22 07/18/24 History 0.8 mg-zinc oxide-lutein 5 mg capsule (PreserVision Lutein) collagen (bovine) 100 % topical 10 ea topical 07/16/23 07/18/24 History powder in packet Allergies Allergy/AdvReac Type Severity Reaction Status Date / Time artificial colors and flavors Allergy Intermediate Migraine Uncoded 07/18/24 13:09 Cheddar cheese AdvReac Severe Headache Uncoded 07/18/24 13:08 MSG AdvReac Severe Headache Uncoded 07/18/24 13:08 Red wine AdvReac Severe Headache Uncoded 07/18/24 13:08 Chocolate AdvReac Mild Headache Uncoded 07/18/24 13:08 Exam Narrative: Exam Narrative: General: No acute distress. Awake alert oriented x3. HEENT: Normocephalic atraumatic, pupils equally round and reactive to light and accommodation. Oropharynx clear. Mucous membranes are moist. No cervical lymphadenopathy, thyromegaly or carotid bruits. No JVD. Cardiovascular: Irregularly irregular. No murmurs, gallops, or rubs. Chest: No increased work of breathing. Clear to auscultation bilaterally. No crackles or wheezes. Abdomen: Bowel sounds present. Soft, nondistended, nontender. No hepatosplenomegaly or masses. Extremities: Trace bilateral lower extremity edema, no cyanosis or clubbing. Skin: No jaundice, no pallor, no rashes. Const: Vital Signs, click to edit/add: Vital Signs - 24 hr 09/04/24 18:41 09/04/24 19:20 09/04/24 19:21 Temperature 97.8 F Pulse Rate 87 88 Pulse Rate [Pulse Oximeter] 133 H Respiratory Rate 18 Blood Pressure 142/79 H Blood Pressure [Ri ght Upper Arm] 156/94 H Pulse Oximetry 97 98 99 09/04/24 19:30 09/04/24 19:45 09/04/24 19:56 Temperature Pulse Rate 100 80 102 H Pulse Rate [Pulse Oximeter] Respiratory Rate Blood Pressure 150/112 H Blood Pressure [Ri ght Upper Arm] Pulse Oximetry 97 92 100 09/04/24 19:57 09/04/24 20:00 09/04/24 20:08 Temperature Pulse Rate 98 92 85 Pulse Rate [Pulse Oximeter] Respiratory Rate 16 Blood Pressure 142/100 H 128/84 Blood Pressure [Ri ght Upper Arm] Pulse Oximetry 98 98 94 09/04/24 20:15 09/04/24 20:26 09/04/24 20:27 Temperature Pulse Rate 70 74 71 Pulse Rate [Pulse Oximeter] Respiratory Rate 16 Blood Pressure 103/76 Blood Pressure [Ri ght Upper Arm] Pulse Oximetry 93 86 L 99 09/04/24 20:30 09/04/24 20:45 09/04/24 21:00 Temperature Pulse Rate 74 70 69 Pulse Rate [Pulse Oximeter] Respiratory Rate Blood Pressure Blood Pressure [Ri ght Upper Arm] Pulse Oximetry 94 96 97 09/04/24 21:15 09/04/24 21:18 Temperature Pulse Rate 78 80 Pulse Rate [Pulse Oximeter] Respiratory Rate Blood Pressure 116/82 Blood Pressure [Ri ght Upper Arm] Pulse Oximetry 96 98 Hospitalist - H&P: Result Labs Labs: Short CBC 09/04/24 Range/Units 19:15 WBC 6.40 (4.50-11.00) K/uL Hgb 13.4 (12.0-16.0) gm/dL Hct 41.6 (33.0-51.0) % Plt Count 185 (140-440) K/uL BMP 09/04/24 19:15 Sodium 140 Potassium 3.5 L Chloride 106 Carbon Dioxide 26 BUN 32 H Creatinine 0.7 Glucose 116 H Calcium 9.8 Cardiac Enzymes 09/04/24 Range/Units 19:15 Troponin I < 0.01 L (0.01-0.04) ng/mL Liver Function 09/04/24 Range/Units 19:15 Total Bilirubin 0.3 (0.1-1.5) mg/dL Direct Bilirubin 0.1 (0.0-0.5) mg/dL AST 27 (12-35) U/L ALT 18 (4-35) U/L Alkaline Phosphatase 56 (40-150) U/L Albumin 4.1 (3.3-5.0) g/dL 09/04/2024 7:09 p.m. EKG: Atrial fibrillation or flutter, heart rate 113 beats per minute, ST and T-wave abnormality, consider inferior ischemia 09/04/2024 7:48 p.m. EKG: Undetermined rhythm, appears to be atrial fibrillation or atrial flutter, 98 beats per minute. Otherwise normal EKG. Assessment and Plan Assessment and plan (1) Atrial fibrillation with RVR: Problem comment: - new onset - may have been having episodes for weeks or longer - obtain ECHO - discussed cutting back on alcohol to 1-2 drinks per week rather than 1 every night. - rate controlled with diltiazem drip. Will attempt transition to oral rate control. Patient does not want dyes, if possible, because these cause migraine headaches. Will start metoprolol 25mg q4h with hold parameters. - Discussed anticoaguation. Patient had been on warfarin in the past for DVT while on Tamoxifen. She wishes to try Eliquis. She understands Eliquis likely has dye in it. MD Calc: [id number] Score for Atrial Fibrillation Stroke Risk: 3 points Stroke risk was 3.2% per year in >90,000 patients (the [place] Atrial Fibrillation Cohort Study) and 4.6% risk of stroke/TIA/systemic embolism. One recommendation suggests a 0 score for men or 1 score for women (no clinical risk factors) is ?low? risk and may not require anticoagulation; a 1 score for men or 2 score for women is ?low-moderate? risk and should consider anticoagulation; and a score =2 for men or =3 for women is ?moderate-high? risk and should otherwise be an anticoagulation candidate. HAS-BLED Score 1 points Risk was 3.4% in one validation study (Lip 2011) and 1.02 bleeds per 100 patient-years in another validation study (Pisters 2010). Anticoagulation should be considered: Patient has a relatively low risk for major bleeding (~1/100 patient-years). Status: Acute (2) Hypokalemia: Problem comment: - replaced orally in the emergency department. Magnesium was within normal limits. Recheck potassium in the morning. Status: Acute (3) Elevated TSH: Problem comment: - patient has history of hypothyroidism on her chart, however she does not take any medications for this. TSH is mildly elevated today in the setting of atrial fibrillation with rapid ventricular rate. Recommend rechecking TSH as an outpatient in a few weeks to a month. Status: Acute
[2024-09-04] MEDS: APIXABAN 5 MG TABLET 2.5 MG PO (23:32)
[2024-09-04] MEDS: METOPROLOL TARTRATE 25 MG TABLET PO (23:33)
[2024-09-05] VITALS: BP 116/72; PULSE 76; PULSE 86; RESP 18; TEMP 36.6; O2SAT 96
[2024-09-05 00:56] LABS: Free T4 Free Thyroxine* 1.14 ng/dL (0.70-1.85)
[2024-09-05 02:00] VITALS: BP 102/86; PULSE 72; RESP 16; TEMP 36.4; O2SAT 97
[2024-09-05] MEDS: METOPROLOL TARTRATE 25 MG TABLET PO (03:01)
[2024-09-05 04:00] VITALS: BP 97/63; PULSE 53; PULSE 56; RESP 16; O2SAT 96
[2024-09-05 06:00] VITALS: BP 100/51; PULSE 59; RESP 18; TEMP 36.4; O2SAT 97
--- NOTE | 2024-09-05 06:48 | PC.NURSE ---
ADMISSION/SHIFT NOTE: Pt A&O, pleasant. Initially on a diltiazem drip, tele showing a-fib. Pt converted to a sinus rhythm with 1st degree HB around 0100, diltiazem drip turned off at 0115. Pt given scheduled PO metoprolol x2, did not give the 0700 dose because HR was in the 50's, sinus haley. Pt up SBA, tolerating well. Pt reports she feels well; denies pain, SOB, CP, and N/V. Is anxious to discharge home and is hopeful to leave today.
[2024-09-05 06:54] LABS: Chloride* 107 mmol/L (96-114); Potassium* 3.8 mmol/L (3.6-5.1); Sodium* 138 mmol/L (135-149)
[2024-09-05 06:57] LABS: Anion Gap 7 mEq/L (7-15); Blood Urea Nitrogen* 22 mg/dL (7-30); Calcium* 9.1 mg/dL (8.4-10.6); Carbon Dioxide* 24 mmol/L (20-32); Creatinine* 0.6 mg/dL (0.5-1.5); Est. Creatinine Clearance* 40.38; Estimated Glomerular Filt Rate 91 ml/min; Glucose* 90 mg/dL (60-115)
[2024-09-05 07:00] VITALS: BP 102/71; PULSE 57; PULSE 61; RESP 18; TEMP 36.6; O2SAT 99
[2024-09-05] MEDS: SODIUM CHLORIDE 0.9 % (FLUSH) 10 ML SYRINGE 5 ML IVF (09:17)
[2024-09-05] MEDS: APIXABAN 5 MG TABLET 2.5 MG PO (09:17)
[2024-09-05] MEDS: METOPROLOL SUCCINATE (XL) 25 MG TAB PO (10:54)
[2024-09-05 10:56] VITALS: BP 108/66; PULSE 65; RESP 18; TEMP 36.6; O2SAT 98
--- NOTE | 2024-09-05 12:45 | P.DS_ITS ---
DS: Providers Provider Date Seen: 09/05/24 Date of admission: 09/04/24 22:34 Primary care physician: Melissa Stokes MD Admitting Clinician: Deb Torres MD Attending Physician on discharge: Chele Silva MD Date of Discharge: 09/05/24 DS: Diagnosis Discharge Diagnosis (1) Atrial fibrillation with RVR: Status: Acute Problem details: Spontaneously converted during the night to sinus rhythm. Currently asymptomatic. Discharge on renal dose apixaban and metoprolol extended-release 25 mg daily. Follow-up with primary care and probably cardiology to review evaluation and management of paroxysmal atrial fibrillation Calc: [id number] Score for Atrial Fibrillation Stroke Risk: 3 points Stroke risk was 3.2% per year in >90,000 patients (the [place] Atrial Fibrillation Cohort Study) and 4.6% risk of stroke/TIA/systemic embolism. One recommendation suggests a 0 score for men or 1 score for women (no clinical risk factors) is ?low? risk and may not require anticoagulation; a 1 score for men or 2 score for women is ?low-moderate? risk and should consider anticoagulation; and a score =2 for men or =3 for women is ?moderate-high? risk and should otherwise be an anticoagulation candidate. HAS-BLED Score 1 points Risk was 3.4% in one validation study (Lip 2011) and 1.02 bleeds per 100 patient-years in another validation study (Pisters 2010). Anticoagulation should be considered: Patient has a relatively low risk for major bleeding (~1/100 patient-years). (2) Elevated TSH: Status: Acute Problem details: TSH was 4.48 and free T4 was 1.14. In the presence of atrial fibrillation this appears to be optimal level of thyroid function. DS: Summary Hospital Course Hospital Course: Jose De Jesus Burch is a 79 year old female with a h/o breast cancer, hypothyroidism, and hyperlipidemia who does not take any prescription medications who was out biking this afternoon when she noticed her HR jump all around from 120-180s on her sport watch. She was not aware of her tachycardia. She did not have chest pain or dyspnea. She did say that she did not feel quite right. She also became quite anxious when she saw her heart rate. She went home and laid down, but her HR continued to be elevated and irregular. She took her BP which measured 220/150, so she came to the ER immediately. She was admitted to the hospital with AFib with RVR. Troponin was normal. She is relatively asymptomatic. She was started on IV diltiazem and then switched to oral metoprolol for rate control. During the night she converted to sinus rhythm. Today she reports feeling fine. No known previous episodes of AFib. She does not have hypertension, history of heart disease, history of sleep apnea, hyperthyroidism. She drinks 1 alcoholic beverage per day. A remote history of a DVT in her leg while she was on tamoxifen. Treated with warfarin at the time. Status at Discharge Overall status at discharge: patient is back to baseline Time Spent with Patient Time attestation: Total time spent providing and/or coordinating discharge services: 50 minutes Time spent: Greater than 30 minutes Exam Narrative: Exam Narrative: She is alert and appears in no distress. Respirations are clear to auscultation. Cardiovascular: S1, S2, regular rate and rhythm. No murmur gallop or rub. Abdomen is soft without tenderness. Extremities without edema. Const: Vital Signs, click to edit/add: Vital Signs - 24 hr 09/04/24 18:41 09/04/24 19:20 09/04/24 19:21 Temperature 97.8 F Pulse Rate 87 88 Pulse Rate [Apical ] Pulse Rate [Pulse Oximeter] 133 H Respiratory Rate 18 Blood Pressure 142/79 H Blood Pressure [Le ft Arm] Blood Pressure [Ri ght Upper Arm] 156/94 H Pulse Oximetry 97 98 99 Oxygen Delivery Me thod 09/04/24 19:30 09/04/24 19:45 09/04/24 19:56 Temperature Pulse Rate 100 80 102 H Pulse Rate [Apical ] Pulse Rate [Pulse Oximeter] Respiratory Rate Blood Pressure 150/112 H Blood Pressure [Le ft Arm] Blood Pressure [Ri ght Upper Arm] Pulse Oximetry 97 92 100 Oxygen Delivery Me thod 09/04/24 19:57 09/04/24 20:00 09/04/24 20:08 Temperature Pulse Rate 98 92 85 Pulse Rate [Apical ] Pulse Rate [Pulse Oximeter] Respiratory Rate 16 Blood Pressure 142/100 H 128/84 Blood Pressure [Le ft Arm] Blood Pressure [Ri ght Upper Arm] Pulse Oximetry 98 98 94 Oxygen Delivery Me thod 09/04/24 20:15 09/04/24 20:26 09/04/24 20:27 Temperature Pulse Rate 70 74 71 Pulse Rate [Apical ] Pulse Rate [Pulse Oximeter] Respiratory Rate 16 Blood Pressure 103/76 Blood Pressure [Le ft Arm] Blood Pressure [Ri ght Upper Arm] Pulse Oximetry 93 86 L 99 Oxygen Delivery Me thod 09/04/24 20:30 09/04/24 20:45 09/04/24 21:00 Temperature Pulse Rate 74 70 69 Pulse Rate [Apical ] Pulse Rate [Pulse Oximeter] Respiratory Rate Blood Pressure Blood Pressure [Le ft Arm] Blood Pressure [Ri ght Upper Arm] Pulse Oximetry 94 96 97 Oxygen Delivery Me thod 09/04/24 21:15 09/04/24 21:18 09/04/24 21:35 Temperature 98.3 F Pulse Rate 78 80 Pulse Rate [Apical ] 93 Pulse Rate [Pulse Oximeter] Respiratory Rate 18 Blood Pressure 116/82 Blood Pressure [Le ft Arm] 132/74 Blood Pressure [Ri ght Upper Arm] Pulse Oximetry 96 98 98 Oxygen Delivery Me thod Room Air 09/04/24 22:00 09/04/24 22:07 09/04/24 23:00 Temperature Pulse Rate 88 Pulse Rate [Apical ] 93 Pulse Rate [Pulse Oximeter] Respiratory Rate 18 18 Blood Pressure Blood Pressure [Le ft Arm] Blood Pressure [Ri ght Upper Arm] Pulse Oximetry 98 Oxygen Delivery Me od Room Air 09/04/24 23:00 09/05/24 00:00 09/05/24 00:00 Temperature 98 F Pulse Rate 76 Pulse Rate [Apical ] 86 Pulse Rate [Pulse Oximeter] Respiratory Rate 18 18 Blood Pressure Blood Pressure [Le ft Arm] 116/72 Blood Pressure [Ri ght Upper Arm] Pulse Oximetry 97 96 Oxygen Delivery Me thod Room Air Room Air 09/05/24 02:00 09/05/24 04:00 09/05/24 04:00 Temperature 97.5 F L Pulse Rate 53 L Pulse Rate [Apical ] 72 56 L Pulse Rate [Pulse Oximeter] Respiratory Rate 16 16 Blood Pressure Blood Pressure [Le ft Arm] 102/86 97/63 Blood Pressure [Ri ght Upper Arm] Pulse Oximetry 97 96 Oxygen Delivery Me thod Room Air Room Air 09/05/24 06:00 09/05/24 07:00 09/05/24 07:00 Temperature 97.6 F Pulse Rate Pulse Rate [Apical ] 59 L 61 Pulse Rate [Pulse Oximeter] Respiratory Rate 18 18 18 Blood Pressure Blood Pressure [Le ft Arm] 100/51 L Blood Pressure [Ri ght Upper Arm] Pulse Oximetry 97 99 Oxygen Delivery Me thod Room Air Room Air 09/05/24 07:00 09/05/24 07:00 09/05/24 10:56 Temperature 97.9 F 97.9 F Pulse Rate 57 L Pulse Rate [Apical ] 61 65 Pulse Rate [Pulse Oximeter] Respiratory Rate 18 18 Blood Pressure Blood Pressure [Le ft Arm] 102/71 108/66 Blood Pressure [Ri ght Upper Arm] Pulse Oximetry 99 98 Oxygen Delivery Me thod Room Air Room Air DS: Data Data Completed and Pending Labs on day of discharge: Labs from last 24 hours 09/05/24 09/04/24 09/04/24 06:05 23:43 19:15 WBC 6.40 RBC 4.52 Hgb 13.4 Hct 41.6 MCV 92 MCH 30 MCHC 32 RDW Coeff of Pamela 13.5 Plt Count 185 Neut % (Auto) 54.1 Lymph % (Auto) 35.2 [place] % (Auto) 8.4 Eos % (Auto) 1.6 Baso % (Auto) 0.5 Neut # (Auto) 3.47 Lymph # (Auto) 2.25 [place] # (Auto) 0.50 Eos # (Auto) 0.10 Baso # (Auto) 0.03 Abs Immat Gran (auto) 0.01 Imm/Tot Granulo (auto) 0.2 INR 0.92 Sodium 138 140 Potassium 3.8 3.5 L Chloride 107 106 Carbon Dioxide 24 26 Anion Gap 7 8 BUN 22 32 H Creatinine 0.6 0.7 Estimated Creat Clear 40.38 40.38 Estimated GFR 91 87 Glucose 90 116 H Lactate 0.9 Calcium 9.1 9.8 Magnesium 2.3 Total Bilirubin 0.3 Direct Bilirubin 0.1 AST 27 ALT 18 Alkaline Phosphatase 56 Troponin I < 0.01 L NT-Pro-B Natriuret Pep 198 Total Protein 6.8 Albumin 4.1 TSH 4.480 H Free T4 1.14 Lab Acknowledgement Test Added Discharge Plan Discharge Disposition: Home, Self-Care Date of Admission: 09/04/24 22:34 Attending Provider on Discharge: Francis Silva Primary Care Provider: Melissa Stokes Condition: Improved Anticipated Discharge Date/Time: 09/05/24 13:30 Discharge Medications: New metoprolol succinate 25 mg Tablet Extended Release 24 Hr 25 mg PO DAILY Qty: 30 0RF Eliquis 5 mg Tablet 2.5 mg PO BID Qty: 60 0RF Continued cholecalciferol (vitamin D3) 50 mcg (2,000 unit) capsule 2,000 - 4,000 unit PO DAILY coenzyme Q10 [CoQ-10] 100 mg capsule 100 mg PO DAILY PreserVision Lutein 226-90-0.8-5 mg capsule 1 cap PO DAILY up4 Probiotics Adult 50 Plus 25 billion cell capsule 1 cap PO DAILY COLLAGEN PEPTIDES 1 ea PO BID Discharge Orders: Discharge Order (Routine); Ordered 09/05/24 Ordered By: Francis Silva Activity Level: Activity as Tolerated Follow Up Appointments: Melissa Stokes MD [Primary Care Provider] - (Follow-up in 1 week) Forms: [facility] Info Instructions
--- NOTE | 2024-09-05 13:44 | PC.NURSE ---
Discharge: patient pleasant and cooperative. Off unit at 0800. Patient S. Arrythmia with first degree HB. Tolerating a reg diet. Up to chair for meals, on RA. VSS denies N/V/SOB or pain. Patient discharged to home after ECCO. accompanied by spouse. IV removed intact. Discharge instructions given and signed. Patient verbalized understanding of discharge instructions.
== END 2024-09-05 13:40 | disposition home or self-care (01) | DRG 310 ==
LOC: ED 21:11 → MEDSURG 21:32
PROVIDERS: Family Medicine; Admitting Provider Family Medicine; Emergency Provider Family Medicine; PCP Family Medicine; Visit Provider Family Medicine
DX: I48.0 Paroxysmal atrial fibrillation (principal); I48.92 Unspecified atrial flutter; E87.6 Hypokalemia; E03.9 Hypothyroidism, unspecified; E78.5 Hyperlipidemia, unspecified; Z85.3 Personal history of malignant neoplasm of breast; Z86.718 Personal history of other venous thrombosis and embolism; Z85.828 Personal history of other malignant neoplasm of skin; R94.6 Abnormal results of thyroid function studies
CPT/HCPCS: 36415; 80048; 80076; 83605; 83735; 83880; 84439; 84443; 84484; 85025; 85610; 93005; 93306; 94761; 99285; A9270; J3490; J7030

== ENCOUNTER 2024-09-15 14:35 | Outpatient (CLI) | payer MEDICARE, SELFPAY | END 2024-09-15 14:36 | disposition home or self-care (01) | PROVIDERS: PCP Family Medicine; Visit Provider Family Medicine | DX: E78.5 Hyperlipidemia, unspecified (principal); E03.9 Hypothyroidism, unspecified; I48.91 Unspecified atrial fibrillation | CPT/HCPCS: 80053; 80061 ==

== ENCOUNTER 2024-11-16 09:33 | Outpatient (CLI) | payer MEDICARE, SELFPAY | END 2024-11-16 09:34 | disposition home or self-care (01) | LOC: NFLDREF 11-27 14:10 | PROVIDERS: PCP Family Medicine; Referring Provider Family Medicine; Visit Provider Family Medicine | DX: E78.5 Hyperlipidemia, unspecified (principal) | CPT/HCPCS: 80061 ==

== ENCOUNTER 2025-02-16 10:48 | Outpatient (CLI) | payer MEDICARE, SELFPAY | END 2025-02-16 10:49 | disposition home or self-care (01) | LOC: NFLDREF 02-20 02:09 | PROVIDERS: PCP Family Medicine; Referring Provider Family Medicine; Visit Provider Physician Assistant | DX: N39.0 Urinary tract infection, site not specified (principal) | CPT/HCPCS: 87086 ==

== ENCOUNTER 2025-08-27 09:54 | Outpatient (CLI) | payer MEDICARE, SELFPAY ==
--- NOTE | 2025-08-27 10:15 | CRLHL7_ITS ---
For Patients: As a result of the Century Cures Act, medical imaging exams and procedure reports are released immediately into your electronic medical record. You may view this report before your referring provider. If you have questions, please contact your health care provider. INDICATION: BILATERAL SCREENING MAMMOGRAM, ASYMPTOMATIC 80 Y/O FEMALE COMPARISON: 06/19/2024, 06/14/2023, 06/05/2022 TECHNIQUE: Digital mammogram in CC and MLO projections including computer-aided detection (CAD) and tomosynthesis. BREAST COMPOSITION: The breasts are heterogeneously dense, which may obscure small masses. FINDINGS: No suspicious findings. ASSESSMENT: BI-RADS 2 Benign RECOMMENDATION: Annual screening mammogram. A lay language report of this examination will be provided to the patient. Dictated by: Frank Baker MD @ 08/27/2025 12:50:48 (Electronically Signed)
== END 2025-08-27 09:55 | disposition home or self-care (01) ==
LOC: MAMMO 09:54
PROVIDERS: PCP Internal Medicine; Visit Provider Internal Medicine
DX: Z12.31 Encounter for screening mammogram for malignant neoplasm of breast (principal); R92.333 Mammographic heterogeneous density, bilateral breasts
CPT/HCPCS: 77063; 77067

== ENCOUNTER 2025-08-29 07:53 | Outpatient (CLI) | payer MEDICARE, SELFPAY ==
--- NOTE | 2025-08-29 08:15 | CRLHL7_ITS ---
For Patients: As a result of the Century Cures Act, medical imaging exams and procedure reports are released immediately into your electronic medical record. You may view this report before your referring provider. If you have questions, please contact your health care provider. Technique: Single water-soluble esophagram performed with Gastrografin Fluoroscopy time 45 seconds. Indication: FEELS LIKE THINGS ARE GETTING STUCK Comparison: None. Findings: Esophagus: Normal morphology and motility. No stricture or mass. Gastroesophageal reflux: None. Impression: Unremarkable exam. Dictated by Frank Baker MD @ 08/29/2025 10:50:55 AM (Electronically Signed)
== END 2025-08-29 07:54 | disposition home or self-care (01) ==
LOC: RAD 07:53
PROVIDERS: PCP Internal Medicine; Visit Provider Internal Medicine
DX: R13.10 Dysphagia, unspecified (principal)
CPT/HCPCS: 74220; Q9958

== ENCOUNTER 2025-10-15 09:42 | Outpatient (CLI) | payer MEDICARE, SELFPAY | END 2025-10-15 09:43 | disposition home or self-care (01) | LOC: RAD 09:43 | PROVIDERS: PCP Internal Medicine; Visit Provider Internal Medicine | DX: I48.91 Unspecified atrial fibrillation (principal); I35.1 Nonrheumatic aortic (valve) insufficiency | CPT/HCPCS: 93306 ==

== ENCOUNTER 2025-10-23 09:30 | Outpatient (CLI) | payer MEDICARE, SELFPAY | END 2025-10-23 09:31 | disposition home or self-care (01) | LOC: NFLDREF 10-28 17:16 | PROVIDERS: PCP Internal Medicine; Referring Provider Internal Medicine; Visit Provider Internal Medicine | DX: M81.0 Age-related osteoporosis without current pathological fracture (principal); E78.5 Hyperlipidemia, unspecified | CPT/HCPCS: 80061; 82306 ==